=== PATIENT | female | born 1975 | race Caucasian/White ===

== ENCOUNTER 2021-11-19 14:54 | Emergency (ER) | payer OTHER ==
[~2021-11-19 14:54] MED LIST: ABILIFY5 MG PO; BRIN20TA PO; CIPRO500 MG PO; FLORANEX TABLE1 EACH PO; KLONOPIN1 MG PO; LEVAQUIN750 MG PO; LISINOPRIL-HCT1 EAC2 PO; MELATONIN5 M2 PO; METRONIDAZOLE500 MG PO; NORCO 5-325 TA1 EACH PO; PRILOSEC20 MG PO; PROAIR HFA8.5 GM INH; ROBAXIN750 MG PO; TOPAMAX50 MG PO; XARELTO20 MG PO; ZYRTEC10 M3 PO
[2021-11-19 16:48] LABS: BASOPHIL 0.4 % (0-2); EOSINOPHIL 1.9 % (0-5); HCT 45.8 % (37.0-47.0); HGB 15.2 g/dl (12.5-16.0); LYMPHOCYTE 33.7 % (15-48); MCH 29.3 pg (25.0-31.0); MCHC 33.2 g/dL (32.0-36.0); MCV 88.2 fL (78.0-100.0); MONOCYTE 5.5 % (0-12); MPV 10.4 fL (6.0-9.5); NRBC 0; PLT 364 K/uL (150-400); RBC 5.19 M/uL (4.20-5.40); RDW 14.4 % (11.5-14.0); WBC 14.1 K/uL (4.0-10.5)
[2021-11-19 17:11] LABS: BILIRUBIN - TOTAL 0.2 mg/dL (0.2-1.0); BUN/CREAT RATIO (CALC) 15.3 RATIO; CREATININE 0.72 mg/dL (0.51-0.95); GLOBULIN (CALCULATION) 3.7 g/dL; POTASSIUM 3.9 mmol/L (3.5-5.1); TOTAL PROTEIN 7.7 g/dL (6.4-8.2)
[2021-11-19 17:15] LABS: LACTIC ACID 1.6 mmol/L (0.4-1.9)
[2021-11-19 17:37] LABS: BILIRUBIN NEGATIVE (NEGATIVE); BLOOD NEGATIVE Ery/uL (NEGATIVE); CLARITY CLEAR (CLEAR); COLOR YELLOW (YELLOW); GLUCOSE (U) NORMAL (NORMAL); LEUKOCYTES NEGATIVE Leu/uL (NEGATIVE); NITRITE NEGATIVE (NEGATIVE); PROTEIN NEGATIVE (NEGATIVE); SPECIFIC GRAVITY 1.025 (1.001-1.030); UROBILINOGEN 0.2 mg/dL (0.2-1.0)
== END 2021-11-19 19:19 | disposition home or self-care (01) ==
LOC: FER 14:54
PROVIDERS: Emergency Medicine
DX: K57.32 Diverticulitis of large intestine without perforation or abscess without bleeding (principal); I10 Essential (primary) hypertension; J45.909 Unspecified asthma, uncomplicated; F17.210 Nicotine dependence, cigarettes, uncomplicated; Z88.1 Allergy status to other antibiotic agents; Z88.0 Allergy status to penicillin; Z88.8 Allergy status to other drugs, medicaments and biological substances; Z88.6 Allergy status to analgesic agent; Z79.01 Long term (current) use of anticoagulants
CPT/HCPCS: 36415; 80053; 81003; 83605; 85025; J1170; J2405; Q9967

== ENCOUNTER 2021-12-22 13:18 | Emergency (ER) | payer OTHER ==
[2021-12-22 15:15] LABS: BASOPHIL 0.5 % (0-2); EOSINOPHIL 1.7 % (0-5); HCT 46.4 % (37.0-47.0); HGB 15.4 g/dl (12.5-16.0); LYMPHOCYTE 30.9 % (15-48); MCH 29.3 pg (25.0-31.0); MCHC 33.2 g/dL (32.0-36.0); MCV 88.4 fL (78.0-100.0); MPV 10.9 fL (6.0-9.5); NEUTROPHIL 61.5 % (41-80); NRBC 0; PLT 302 K/uL (150-400); RBC 5.25 M/uL (4.20-5.40); RDW 14.1 % (11.5-14.0); WBC 14.4 K/uL (4.0-10.5)
[2021-12-22 15:19] LABS: BILIRUBIN NEGATIVE (NEGATIVE); BLOOD NEGATIVE Ery/uL (NEGATIVE); CLARITY CLEAR (CLEAR); COLOR YELLOW (YELLOW); GLUCOSE (U) NORMAL (NORMAL); LEUKOCYTES NEGATIVE Leu/uL (NEGATIVE); NITRITE NEGATIVE (NEGATIVE); PROTEIN NEGATIVE (NEGATIVE); SPECIFIC GRAVITY 1.025 (1.001-1.030); UROBILINOGEN 0.2 mg/dL (0.2-1.0)
[2021-12-22 15:50] LABS: BUN/CREAT RATIO (CALC) 28.4 RATIO; CREATININE 0.74 mg/dL (0.51-0.95); POTASSIUM 3.9 mmol/L (3.5-5.1)
[2021-12-22 17:40] LABS: LACTIC ACID 1.3 mmol/L (0.4-1.9)
[2021-12-22] MEDS ORDERED: BACLOFEN 10MG T10 MG PO (18:06)
[2021-12-22] MEDS ORDERED: PREDNISONE 20MG20 MG PO (18:06)
[2021-12-22] MEDS ORDERED: ULTRAM50 MG PO (18:06)
== END 2021-12-22 18:17 | disposition home or self-care (01) ==
LOC: FER 13:18
PROVIDERS: Nurse Practitioner Family
DX: M50.322 Other cervical disc degeneration at C5-C6 level (principal); M48.02 Spinal stenosis, cervical region; I10 Essential (primary) hypertension; F17.210 Nicotine dependence, cigarettes, uncomplicated; Z88.0 Allergy status to penicillin; Z88.1 Allergy status to other antibiotic agents; Z88.5 Allergy status to narcotic agent; Z88.8 Allergy status to other drugs, medicaments and biological substances
CPT/HCPCS: 36415; 70450; 72125; 80048; 81003; 83605; 85025; J1100